=== PATIENT | female | born 1995 | race Hispanic/Latino ===

== ENCOUNTER 2017-10-13 15:14 | Emergency (ER) | payer OTHER, SELFPAY ==
[2017-10-13 15:28] VITALS: BP 111/67; PULSE 57; RESP 18; TEMP 37; O2SAT 99
[2017-10-13 16:56] LABS: Alanine Aminotransferase 13 IU/L (9-52)
[2017-10-13 17:29] VITALS: BP 102/66; PULSE 54; RESP 14; O2SAT 100
[2017-10-13 17:32] LABS: Hepatitis B Surface Antigen NEGATIVE s/c (NEGATIVE)
[2017-10-13 17:47] LABS: HIV 1 and 2 Antibody NEGATIVE (NEGATIVE); Hep C Virus Ab w/Reflex Quant NEGATIVE s/c (NEGATIVE)
--- NOTE | 2017-10-13 18:08 | ED.GENADULT ---
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 One had fallen out, and poked her in the left middle finger dorsum, drawing blood. She rinsed this thoroughly, cannot see puncture wound now. She is up-to-date on all of her vaccines including tetanus. She states that patient already had blood work drawn and she had an exposure panel prior to arrival here. Related Data Home Medications Medication Instructions Recorded Confirmed hydrochlorothiazide 12.5 mg PO DAILY 10/13/17 10/13/17 ranitidine HCl 150 mg PO BID 10/13/17 Review of Systems <YAW Allen Last Filed: 10/13/17 22:41> Review of Systems All systems reviewed & are unremarkable except as noted in HPI and below Exam <Serina Hodge PA-C - Last Filed: 10/13/17 22:41> Narrative Exam Narrative: GENERAL APPEARANCE: Patient sitting comfortably, in no distress. LUNGS: Clear to auscultation bilaterally. HEART: Rate and rhythm regular without murmur, normal S1 and S2, no S3 or S4. DERMATOLOGIC: No visible puncture wounds on the left hand fingers Initial Vital Signs Initial Vital Signs: Vital Signs Temperature 98.6 F 10/13/17 15:28 Pulse Rate 57 L 10/13/17 15:28 Respiratory Rate 18 10/13/17 15:28 Blood Pressure 111/67 10/13/17 15:28 Pulse Oximetry 99 10/13/17 15:28 <Blake Sanders DO - Last Filed: 10/14/17 03:52> Initial Vital Signs Initial Vital Signs: Vital Signs Temperature 98.6 F 10/13/17 15:28 Pulse Rate 57 L 10/13/17 15:28 Respiratory Rate 18 10/13/17 15:28 Blood Pressure 111/67 10/13/17 15:28 Pulse Oximetry 99 10/13/17 15:28 Course <Serina Hodge PA-C - Last Filed: 10/13/17 22:41> Vital Signs - 8 hr 10/13/17 15:28 10/13/17 17:29 Temperature 98.6 F Pulse Rate 57 L 54 L Respiratory Rate 18 14 Blood Pressure 111/67 Blood Pressure [Left Arm] 102/66 Pulse Oximetry 99 100 <Blake Sanders DO - Last Filed: 10/14/17 03:52> Vital Signs - 8 hr 10/13/17 15:28 10/13/17 17:29 Temperature 98.6 F Pulse Rate 57 L 54 L Respiratory Rate 18 14 Blood Pressure 111/67 Blood Pressure [Left Arm] 102/66 Pulse Oximetry 99 100 Medical Decision Making <Serina Hodge PA-C - Last Filed: 10/13/17 22:41> Lab Data Lab Results 10/13/17 10/13/17 Range/Units 15:50 15:50 ALT 13 (9-52) IU/L Hep Bs Antigen Negative (NEGATIVE) s/c Hepatitis C Antibody Negative (NEGATIVE) s/c HIV 1&2 Antibody Negative (NEGATIVE) <DO Haydee Mills Last Filed: 10/14/17 03:52> Lab Data Lab Results 10/13/17 10/13/17 Range/Units 15:50 15:50 ALT 13 (9-52) IU/L Hep Bs Antigen Negative (NEGATIVE) s/c Hepatitis C Antibody Negative (NEGATIVE) s/c HIV 1&2 Antibody Negative (NEGATIVE) Discharge Plan Departure Patient Disposition: Home, Self-Care Clinical Impression: Accidental needlestick injury with exposure to body fluid Discharge Date/Time: 10/13/17 19:08 Interventions: ED Discharge Assessment Last Done: 10/13/17 19:08 Instructions: DI for Accidental Exposure to Body Fluids Activity Restrictions/Additional Instructions: Please follow-up with your PCP to review your lab work once you have lab work back on the patient who's needle you got stuck with and then you can determine from there whether to do any further testing. Prescriptions: No Action ranitidine HCl 150 mg tablet 150 mg PO BID RF: 0 hydrochlorothiazide 25 mg tablet 12.5 mg PO DAILY RF: 0 Referrals: [facility] [Other] <Blake Sanders DO - Last Filed: 10/14/17 03:52> Cosign ED Attending Seamusature Attestation: I was immediately available in the department for consultation. Documentation has been reviewed. I agree with assessment and plan.
[2017-10-16 14:18] LABS: Hepatitis B Surf Ab Qualitativ Reactive (Nonreactive)
== END 2017-10-13 19:08 | disposition home or self-care (01) ==
PROVIDERS: Emergency Provider Internal Medicine
DX: S61.239A Puncture wound without foreign body of unspecified finger without damage to nail, initial encounter (principal); W46.0XXA Contact with hypodermic needle, initial encounter; Y99.0 Civilian activity done for income or pay; Z77.21 Contact with and (suspected) exposure to potentially hazardous body fluids
CPT/HCPCS: 36415; 84460; 86703; 86706; 86803; 87340; 99282; 99283

== ENCOUNTER → 2017-11-06 12:22 | Outpatient (CLI) | payer OTHER, SELFPAY ==
[2017-11-06 12:37] LABS: Add Manual Diff / Slide Review NO; Basophils Percent Auto 0.9 % (0-2); Eosinophils Percent Auto 0.6 % (2-4); Hematocrit 37.2 % (36-46); Hemoglobin 12.9 g/dL (12.0-16.0); Lymphocytes Percent Auto 45.8 % (25-40); Mean Corpuscular HGB Conc 34.6 % (30-36); Mean Corpuscular Hemoglobin 29.7 PG (26-34); Mean Corpuscular Volume 85.9 fL (80-100); Monocytes Percent Auto 6.2 % (3-14); Neutrophils Absolute Auto 2700 /uL (3000-5900); Neutrophils Percent Auto 46.5 % (50-75); Platelet Count 186 X10^3/uL (150-400); Red Blood Cell Count 4.33 X10^6/uL (4.0-5.2); White Blood Cell Count 5.8 X10^3/uL (4.5-11.0)
== END ==
PROVIDERS: Visit Provider Physician Assistant
DX: R42 Dizziness and giddiness (principal); N30.00 Acute cystitis without hematuria
CPT/HCPCS: 36415; 85025; 87086

== ENCOUNTER → 2018-01-16 14:00 | Outpatient (CLI) | payer OTHER, SELFPAY | DX: Z23 Encounter for immunization (principal) | CPT/HCPCS: 90471; 90686 ==